=== PATIENT | male | born 1955 | race Two or more races ===

== ENCOUNTER 2024-07-06 12:24 | Outpatient (REF) | payer MEDICARE, SELFPAY ==
[2024-07-06 13:40] LABS: Vancomycin Peak 39.6 ug/mL (<=40.0)
== END 2024-07-06 12:25 | disposition home or self-care (01) ==
LOC: LAB 12:24
PROVIDERS: PCP Family Medicine; Visit Provider Family Medicine
DX: Z79.2 Long term (current) use of antibiotics (principal)
CPT/HCPCS: 36415; 80202